=== PATIENT | male | born 1980 | race Caucasian/White ===

== ENCOUNTER 2019-05-03 08:42 | Day surgery (SDC) | payer OTHER ==
[~2019-05-03] VITALS: Ht 172.7 cm; Wt 92.1 kg
[~2019-05-03 08:42] MED LIST: DIPH50LI PO; MELA300T PO; SODIUM CHLORIDE 0.9% 1000ML 1,000 ML IV ONE
[2019-05-03 09:47] VITALS: BP 137/93
[2019-05-03] MEDS ORDERED: PROPOFOL 10 MG/ML 20ML VIAL IV ONE (11:14)
[2019-05-03 11:37] VITALS: BP 97/44
[2019-05-03 11:42] VITALS: BP 102/67
[2019-05-03 11:47] VITALS: BP 119/77
[2019-05-03 11:53] VITALS: BP 115/77
== END 2019-05-03 12:15 | disposition home or self-care (01) ==
LOC: ENDO 08:42 → DAH 08:42 → ENDO 12:15
PROVIDERS: ATTEND Internal Medicine
DX: Z12.11 Encounter for screening for malignant neoplasm of colon (principal); D12.5 Benign neoplasm of sigmoid colon; D12.3 Benign neoplasm of transverse colon; K57.30 Diverticulosis of large intestine without perforation or abscess without bleeding; K29.50 Unspecified chronic gastritis without bleeding; Z80.0 Family history of malignant neoplasm of digestive organs; K64.0 First degree hemorrhoids; K21.0 Gastro-esophageal reflux disease with esophagitis; K44.9 Diaphragmatic hernia without obstruction or gangrene; K31.89 Other diseases of stomach and duodenum; G47.00 Insomnia, unspecified; E66.9 Obesity, unspecified; Z68.31 Body mass index [BMI] 31.0-31.9, adult; Z79.899 Other long term (current) drug therapy; Z98.890 Other specified postprocedural states
CPT/HCPCS: 43239; 45385; A4606; J2704; J7030